=== PATIENT | female | born 1965 | race Caucasian/White ===

== ENCOUNTER 2018-04-05 13:17 | Observation (INO) | payer OTHER ==
--- NOTE | 2018-04-05 14:06 | PDOC ---
History of Present Illness - General Chief Complaint: Chest Pain Stated Complaint: CHEST PAIN - History of Present Illness Initial Comments: The patient is a 53F w/ a hx of a gastric sleeve who presents for evaluation of 2d of burning chest pain that intermittently radiates towards her throat and back. She states that the pain in her back feels more like a pressure. She states that the pain is not exertional, is worse with laying down, and not alleviated by anything she can identify. She has not tried taking anything for her pain. She denies recent illness, fever/chills, JENSEN, vision changes, shortness of breath, abdominal pain, N/V/C/D, or changes in sensation. Patient has an appointment at [facility] tomorrow 04/05/18 14:30 Past History - Past Medical History Allergies/Adverse Reactions: Allergies Allergy/AdvReac Type Severity Reaction Status Date / Time No Known Allergies Allergy Verified 04/05/18 13:25 Home Medications: Ambulatory Orders NK [No Known Home Medication] 04/05/18 COPD: No - Surgical History Abdominal Surgery: Yes (gastric cleeve) - Immunization History Immunization Up to Date: Yes - Suicide/Smoking/Psychosocial Hx Smoking History: Never smoked Hx Alcohol Use: No Drug/Substance Use Hx: No Review of Systems - Review of Systems Able to Perform ROS?: Yes Comments:: GENERAL/CONSTITUTIONAL: No fever or chills. No weakness HEAD, EYES, EARS, NOSE AND THROAT: No change in vision. No ear pain or discharge. No sore throat CARDIOVASCULAR: No shortness of breath RESPIRATORY: Denies cough, hemoptysis GASTROINTESTINAL: No nausea, vomiting, diarrhea or constipation GENITOURINARY: No dysuria, frequency, or change in urination MUSCULOSKELETAL: No joint or muscle swelling or pain SKIN: No rash NEUROLOGIC: No headache, vertigo, loss of consciousness, or change in strength/ sensation ENDOCRINE: No increased thirst. No abnormal weight change HEMATOLOGIC/LYMPHATIC: No anemia, easy bleeding, or history of blood clots ALLERGIC/IMMUNOLOGIC: No hives or skin allergy 04/05/18 14:05 Is the patient limited Syriac proficient: No *Physical Exam - Vital Signs Last Vital Signs Temp Pulse Resp BP Pulse Ox 97.3 F L 71 18 151/97 99 04/05/18 13:26 04/05/18 13:26 04/05/18 13:26 04/05/18 13:26 04/05/18 13:26 - Physical Exam Comments: GENERAL: Awake, alert, and fully oriented, in no acute distress HEAD: No signs of trauma, normocephalic, atraumatic EYES: PERRLA, EOMI, sclera anicteric, conjunctiva clear ENT: Hearing grossly normal, nares patent, oropharynx clear without exudates. Moist mucosa LUNGS: No distress, speaks full sentences, clear to auscultation bilaterally HEART: Regular rate and rhythm, normal S1 and S2, no murmurs appreciated, peripheral pulses normal and equal bilaterally ABDOMEN: Soft, nontender, normoactive bowel sounds. No guarding, no rebound. No masses EXTREMITIES : Normal inspection, Normal range of motion, no edema. No clubbing or cyanosis NEUROLOGICAL: Cranial nerves II through XII grossly intact. Normal speech, normal gait, no focal sensorimotor deficits SKIN: Warm, Dry, normal turgor, no rashes or lesions noted 04/05/18 14:05 Moderate Sedation - Procedure Monitoring Vital Signs: Procedure Monitoring Vital Signs Temperature 97.3 F L 04/05/18 13:26 Pulse Rate 71 04/05/18 13:26 Respiratory Rate 18 04/05/18 13:26 Blood Pressure 151/97 04/05/18 13:26 O2 Sat by Pulse Oximetry (%) 99 04/05/18 13:26 Heart Score/ECG Review - History History: Moderately suspicious - Electrocardiogram EKG: Normal - Age Age: 45-65 - Risk Factors Risk Factors Heart Score: Yes Smoking History, Yes Hx Obesity Based on the list above the patient has:: 1-2 risk factors - Troponin Troponin: </= normal limit - Score Heart Score - Total: 3 ED Treatment Course - LABORATORY CBC & Chemistry Diagram: 04/05/18 14:30 04/05/18 14:30 Medical Decision Making - Medical Decision Making The patient is a 53F w/ a hx of gastric sleeve (2014) who presents for evaluation of burning chest pain that radiates to her throat and back for 2d ED Course CMP, CBC, cardiac enzymes ECG CXR 04/05/18 15:11 Trop I neg No leukocytosis No anemia Lytes wnl No TRUMAN 04/05/18 16:03 Patient reports hx of bronchitis. Reports history of same pain with previous episodes of bronchitis in the past. 04/05/18 16:21 ECG w/ NSR; rate 73; QTc 473 04/05/18 16:42 CTA chest to evaluate for dissection 04/05/18 16:57 L-arm BP 109/58 R-arm BP 118/74 04/05/18 17:42 If, CTA chest neg, plan for Tele obs for ACS r/o 04/05/18 19:03 I have transferred care of the patient to Dr. Leonard and discussed the clinical presentation, work-up and ED course thus far. 04/05/18 19:07 *DC/Admit/Observation/Transfer Diagnosis at time of Disposition: Chest pain Qualifiers: Chest pain type: unspecified Qualified Code(s): R07.9 - Chest pain, unspecified - Discharge Dispostion Condition at time of disposition: Stable - Referrals Referrals: Carlin Baum [Primary Care Provider] - - Patient Instructions Printed Discharge Instructions: DI for Chest Pain - Post Discharge Activity
[2018-04-05] MEDS ORDERED: MAG HYDROX/AL HYDROX/SIMETH 30 ML UNIT-DOSE CUP PO ONE (14:31)
[2018-04-05] MEDS ORDERED: LIDOCAINE VISCOUS 2% ORAL/TOP 20 ML UNIT-DOSE CUP MM ONE (14:31)
[2018-04-05] MEDS ORDERED: LIDOCAINE VISCOUS 2% ORAL/TOP 20 ML UNIT-DOSE CUP ONE (14:35)
[2018-04-05] MEDS ORDERED: MAG HYDROX/AL HYDROX/SIMETH 30 ML UNIT-DOSE CUP ONE (14:36)
[2018-04-05 15:21] LABS: HEMATOCRIT 44.6 % (32.4-45.2); HEMOGLOBIN 14.6 GM/dL (10.7-15.3); MCH 30.8 pg (25.7-33.7); MCHC 32.8 g/dl (32.0-36.0); MEAN PLT VOLUME 11.2 fl (7.5-11.1); PLATELET COUNT 208 K/MM3 (134-434); RBC 4.74 M/mm3 (3.60-5.2); RDW 12.1 % (11.6-15.6); WHITE BLOOD COUNT 5.4 K/mm3 (4.0-10.0)
[2018-04-05 15:47] LABS: ALBUMIN 4.1 g/dl (3.4-5.0); ALK PHOS 96 U/L (45-117); ANION GAP 10 MMOL/L (8-16); BILIRUBIN,TOTAL 0.6 mg/dL (0.2-1); BLOOD UREA NITROGEN 21 mg/dL (7-18); CALCIUM 8.8 mg/dL (8.5-10.1); CHLORIDE 103 mmol/L (98-107); CO2 27 mmol/L (21-32); CREATININE 0.8 mg/dL (0.55-1.3); GLUCOSE,RANDOM 89 mg/dL (74-106); SGOT/AST 31 U/L (15-37); SGPT/ALT 29 U/L (13-61); SODIUM 140 mmol/L (136-145); TOT PROT 7.1 g/dl (6.4-8.2)
--- NOTE | 2018-04-05 17:31 | PDOC ---
Attending Attestation - HPI HPI: 04/05/18 17:33 The patient is a 53-year-old female with a past medical history significant for gastric sleeve presents to the emergency department intermittent chest pain for the 2 days. The patient reports the pain travels up to the throat and back, that s aggravated with laying down. Allergies: NKA PCP: Carlin Hassan - Medical Decision Making 04/05/18 17:33 Documentation prepared by Hanh Cuevas, acting as medical receptionist medical assistant for Andrzej Barraza MD. <Hanh Cuevas - Last Filed: 04/05/18 17:33> - Resident Resident Name: Frankie Cage - ED Attending Attestation I have performed the following: I have examined & evaluated the patient, The case was reviewed & discussed with the resident, I agree w/resident's findings & plan, Exceptions are as noted - Physicial Exam PE: 04/05/18 17:54 Patient is awake and alert, afebrile, in no distress Normocephalic, atraumatic PERRLA, EOMI Neck is supple, without significant anterior cervical lymphadenopathy Oropharynx is clear + Dysphonia CTA RRR No lower extremity edema - Medical Decision Making 04/05/18 17:54 53-year-old female with no previous medical history presents with atraumatic positional chest discomfort and dysphonia. Chest x-ray revealed no evidence of infiltrate or effusion or cardiomegaly. EKG shows no evidence of acute ischemia. First set of cardiac enzymes within normal limit. Will rule out ascending thoracic aneurysm. Will place on telemetry abscess for serial cardiac enzymes. <Andrzej Barraza - Last Filed: 04/05/18 17:55> Heart Score/ECG Review - History History: Moderately suspicious - Electrocardiogram EKG: Normal - Age Age: 45-65 - Risk Factors Risk Factors Heart Score: Yes Smoking History Based on the list above the patient has:: 1-2 risk factors - Troponin Troponin: </= normal limit - Score Heart Score - Total: 3 <Andrzej Barraza - Last Filed: 04/05/18 17:55>
--- NOTE | 2018-04-05 19:00 | EKG ---
Test Reason : Blood Pressure : / mmHG Vent. Rate : 073 BPM Atrial Rate : 073 BPM P-R Int : 176 ms QRS Dur : 086 ms QT Int : 430 ms P-R-T Axes : 070 030 039 degrees QTc Int : 473 ms NORMAL SINUS RHYTHM NORMAL ECG NO PREVIOUS ECGS AVAILABLE Confirmed by POP COVARRUBIAS, ELOY ([id number]) on 04/05/2018 6:59:34 PM Referred By: Confirmed By:ELOY LORD MD
--- NOTE | 2018-04-05 19:40 | PDOC ---
*Physical Exam - Vital Signs Last Vital Signs Temp Pulse Resp BP Pulse Ox 97.3 F L 71 18 151/97 99 04/05/18 13:26 04/05/18 13:26 04/05/18 13:26 04/05/18 13:26 04/05/18 13:26 ED Treatment Course - LABORATORY CBC & Chemistry Diagram: 04/05/18 14:30 04/05/18 14:30 - ADDITIONAL ORDERS Additional order review: Laboratory Results 04/05/18 14:30 Sodium 140 Potassium 4.0 Chloride 103 Carbon Dioxide 27 Anion Gap 10 BUN 21 H Creatinine 0.8 Creat Clearance w eGFR > 60 Random Glucose 89 Calcium 8.8 Total Bilirubin 0.6 AST 31 ALT 29 Alkaline Phosphatase 96 Creatine Kinase 206 H Creatine Kinase Index 1.4 CK-MB (CK-2) 2.9 Troponin I < 0.02 Total Protein 7.1 Albumin 4.1 04/05/18 14:30 RBC 4.74 MCV 94.0 MCHC 32.8 RDW 12.1 MPV 11.2 H - Medications Given in the ED: ED Medications Discontinued Medications Generic Name Dose Route Start Last Admin Trade Name Ryan PRN Reason Stop Dose Admin Al Hydroxide/Mg Hydroxide 30 ml 04/05/18 14:31 04/05/18 14:39 Mylanta Oral Suspension - PO 04/05/18 14:32 30 ml ONCE ONE Administration Lidocaine HCl 20 ml 04/05/18 14:31 04/05/18 14:39 Xylocaine 2% Viscous Oral - MM 04/05/18 14:32 20 ml ONCE ONE Administration Medical Decision Making - Medical Decision Making 04/05/18 19:[address] Cage *DC/Admit/Observation/Transfer Diagnosis at time of Disposition: Chest pain Qualifiers: Chest pain type: unspecified Qualified Code(s): R07.9 - Chest pain, unspecified - Discharge Dispostion Condition at time of disposition: Stable Decision to Admit order: Yes - Referrals Referrals: Carlin Baum [Primary Care Provider] - - Patient Instructions Printed Discharge Instructions: DI for Chest Pain - Post Discharge Activity
[2018-04-05] MEDS ORDERED: ASPIRIN 325 MG TABLET ONE (19:59)
--- NOTE | 2018-04-05 20:52 | PN ---
Teaching Attending Note Name of Resident: Reji Doss ATTENDING PHYSICIAN STATEMENT I saw and evaluated the patient. I reviewed the resident's note and discussed the case with the resident. I agree with the resident's findings and plan as documented. SUBJECTIVE: Patient is a 53 year old woman with history of a gastric sleeve who presents for evaluation of 2d of burning chest pain that intermittently radiates towards her throat and back. She states that the pain in her back feels more like a pressure. She states that the pain is not exertional, is worse with laying down , and not alleviated by anything she can identify. She has not tried taking anything for her pain. She denies recent illness, fever/chills, JENSEN, vision changes, shortness of breath, abdominal pain, N/V/C/D, or changes in sensation OBJECTIVE: Alert Vital Signs Period Temp Pulse Resp BP Sys/[place] Pulse Ox Last 24 Hr 97.3 F 71 18 151/97 99 HEENT: No Jaundice, eye redness or discharge, PERRLA, EOMI. Normocephalic, atraumatic. External ears are normal and hearing is grossly intact. No nasal discharge. Neck: Supple, nontender. No palpable adenopathy or thyromegaly. No JVD Chest: Good effort. Clear to auscultation and percussion. Heart: Regular. No S3, rub or murmur Abdomen: Not distended, soft, nontender and no HSM. No rebound or guarding. Normoactive bowel sounds. Ext: Peripheral pulses intact. No leg edema. Skin: Warm and dry. No petechiae, rash or ecchymosis. Neuro: Alert. Oriented x3. CN 2-12 grossly intact. Sensation grossly intact in all four extremities and DTR are symmetric. Current Medications Generic Name Dose Route Start Last Admin Trade Name Freq PRN Reason Stop Dose Admin Aspirin 325 mg 04/06/18 19:09 Asa - PO 04/06/18 19:10 ONCE ONE Home Medications Medication Instructions Recorded NK [No Known Home Medication] 04/05/18 Abnormal Lab Results 04/05/18 04/05/18 14:30 14:30 MPV 11.2 H BUN 21 H Creatine Kinase 206 H ASSESSMENT AND PLAN: 1. Chest pain - No acute pathology on CXR and no significant ST-T wave changes on EKG. Initial troponin is negative. Will admit to telemetry to rule ACS, get ECHO, fasting lipids and consult cardiology. LLL nodule found on CT - needs repeat CT in 3 months. 2. Obesity - Will provide patient all the necessary assistance, counseling and positive reinforcement to facilitate weight loss. Consult pharmacoepidemiologist. 3. DVT prophylaxis - Lovenox 40 mg SQ q 24 hours. 4. Advance directives - Full code
--- NOTE | 2018-04-05 22:45 | HP ---
CHIEF COMPLAINT: chest pain PCP: Dr. Denton HISTORY OF PRESENT ILLNESS: Pt. is a 53 y.o. F with PMHx. of GERD, Gastric Sleeve(2012) and hiatal hernia presents to the ED with atypical chest pain for 2 days. Pt. states that the pain started 2 days ago and describes the pain as a burning sensation that radiates retrosternally to the back. Pt. states that lying down with pillows for elevation makes the pain better as does movement. Pt. rates the pain at 8/10 on ED admission, after receiving Mylanta, Pt. states the pain has decreased to 6/10. Pt. states that she was evlauated for heart disease before undergoing her previous surgeries and has no history of heart disease. Pt. endorses eating 1-2 hours before lying down to go to bed. Pt. endorses smoking. Pt. endorses recently changing her diet to a ketogenic diet and has noticed tat her acid reflux has gotten worse, with return of belching that had disappeared when she last changed her diet and removed milk which greatly improved her reflux symptoms. Pt. endorses hoarseness of her voice that has increased during this time. Pt. states that she follows with her Primary care Physician regulary and recently had for esophagus scoped. She states that as long as it is not a "heart problem" that she would like to leave because everythign that will be done for her GERD she already has had done. 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" Family History: Father of DC([id number]), Mother has Hypotension, Brother has arthritis Allergies No Known Allergies Allergy (Verified 04/05/18 13:25) HOME MEDICATIONS: Home Medications Medication Instructions Recorded NK [No Known Home Medication] 04/05/18 REVIEW OF SYSTEMS CONSTITUTIONAL: Absent: fever, chills, diaphoresis, generalized weakness, malaise, loss of appetite, weight change HEENT: Present: hoarseness Absent: rhinorrhea, nasal congestion, throat pain, throat swelling, difficulty swallowing, mouth swelling, ear pain, eye pain, visual changes CARDIOVASCULAR: chest pain Absent: syncope, palpitations, irregular heart rate, lightheadedness, peripheral edema RESPIRATORY: Absent: cough, shortness of breath, dyspnea with exertion, orthopnea, wheezing, stridor, hemoptysis GASTROINTESTINAL: chronic constipation Absent: abdominal pain, abdominal distension, nausea, vomiting, diarrhea, , melena, hematochezia GENITOURINARY: Absent: dysuria, frequency, urgency, hesitancy, hematuria, flank pain, genital pain MUSCULOSKELETAL: Absent: myalgia, arthralgia, joint swelling, back pain, neck pain SKIN: Absent: rash, itching, pallor HEMATOLOGIC/IMMUNOLOGIC: Absent: easy bleeding, easy bruising, lymphadenopathy, frequent infections ENDOCRINE: Absent: unexplained weight gain, unexplained weight loss, heat intolerance, cold intolerance NEUROLOGIC: dizziness Absent: headache, focal weakness or paresthesias, unsteady gait, seizure, mental status changes, bladder or bowel incontinence PSYCHIATRIC: Absent: anxiety, depression, suicidal or homicidal ideation, hallucinations. PHYSICAL EXAMINATION Vital Signs - 24 hr 04/05/18 04/05/18 13:26 19:13 Temperature 97.3 F L Pulse Rate 71 Respiratory 18 Rate Blood Pressure 151/97 O2 Sat by Pulse 99 100 Oximetry (%) GENERAL: Awake, alert, and fully oriented, in no acute distress. HEAD: Normal with no signs of trauma. EYES: Pupils equal, round and reactive to light, extraocular movements intact, sclera anicteric, conjunctiva clear. No lid lag. EARS, NOSE, THROAT: Ears normal, nares patent, oropharynx clear without exudates. Moist mucous membranes. NECK: Normal range of motion, supple without lymphadenopathy, JVD, or masses. LUNGS: Breath sounds equal, clear to auscultation bilaterally. No wheezes, and no crackles. No accessory muscle use. HEART: Regular rate and rhythm, normal S1 and S2 without murmur, rub or gallop. ABDOMEN: Soft, nontender, not distended, normoactive bowel sounds, no guarding, no rebound, no masses. No hepatomegaly or splenomegaly. MUSCULOSKELETAL: Normal range of motion at all joints. No bony deformities or tenderness. No CVA tenderness. UPPER EXTREMITIES: 2+ pulses, warm, well-perfused. No cyanosis. No clubbing. No peripheral edema. LOWER EXTREMITIES: 2+ pulses, warm, well-perfused. No calf tenderness. No peripheral edema. NEUROLOGICAL: Cranial nerves II-XII intact. Normal speech. Normal gait. PSYCHIATRIC: Cooperative. Good eye contact. Appropriate mood and affect. SKIN: Warm, dry, normal turgor, no rashes or lesions noted, normal capillary refill. Laboratory Results - last 24 hr 04/05/18 04/05/18 14:30 14:30 WBC 5.4 RBC 4.74 Hgb 14.6 Hct 44.6 MCV 94.0 MCH 30.8 MCHC 32.8 RDW 12.1 Plt Count 208 MPV 11.2 H Sodium 140 Potassium 4.0 Chloride 103 Carbon Dioxide 27 Anion Gap 10 BUN 21 H Creatinine 0.8 Creat Clearance w eGFR > 60 Random Glucose 89 Calcium 8.8 Total Bilirubin 0.6 AST 31 ALT 29 Alkaline Phosphatase 96 Creatine Kinase 206 H Creatine Kinase Index 1.4 CK-MB (CK-2) 2.9 Troponin I < 0.02 Total Protein 7.1 Albumin 4.1 ASSESSMENT/PLAN: Pt. is a 53 y.o. F w/ PMHx. of GERD, Gastric Sleeve(2012), Hiatal Hernia and carpal tunnel presents with burning chest pain that radiates to the back. #R/O ACS -EKG: NSR; QTc: 473 -Tropnin Negative -f/u Rpt. Tropnin and EKG -f/u Echo to rule out structural abnormalities -f/u Lipid panel #GERD -s/p Mylanta in ED to good effect -Pt. endorses hoarsness of voice and history of GERD -Pt, states that she treats GERD with diet control and that her PCP advised against using fci PPI -Pt. had recent EGD, will obtain records in AM from [address] [place] [address] from PCP (Dr. Denton). -f/u ENT consult (Dr. Knapp) -consider GI consult #DVT PPx -Early ambulation #F/E/N -No IVF, enourage PO intake -monitor electrolytes replete as needed -Regular Diet Visit type - Emergency Visit Emergency Visit: Yes ED Registration Date: 04/05/18 Care time: The patient presented to the Emergency Department on the above date and was hospitalized for further evaluation of their emergent condition. - New Patient This patient is new to me today: Yes Date on this admission: 04/05/18 - Critical Care Critical Care patient: No
[2018-04-06 05:38] VITALS: BMI 38.4
[2018-04-06 08:23] LABS: HEMATOCRIT 40.1 % (32.4-45.2); HEMOGLOBIN 13.1 GM/dL (10.7-15.3); MCH 30.6 pg (25.7-33.7); MCHC 32.7 g/dl (32.0-36.0); MEAN CELL VOLUME 93.5 fl (80-96); MEAN PLT VOLUME 10.7 fl (7.5-11.1); PLATELET COUNT 173 K/MM3 (134-434); RBC 4.29 M/mm3 (3.60-5.2); RDW 12.1 % (11.6-15.6); WHITE BLOOD COUNT 3.8 K/mm3 (4.0-10.0)
[2018-04-06 09:17] LABS: ANION GAP 9 MMOL/L (8-16); BLOOD UREA NITROGEN 14 mg/dL (7-18); CALCIUM 8.2 mg/dL (8.5-10.1); CHLORIDE 104 mmol/L (98-107); CO2 29 mmol/L (21-32); CREATININE 0.7 mg/dL (0.55-1.3); GLUCOSE,RANDOM 82 mg/dL (74-106); MAGNESIUM 2.3 mg/dL (1.8-2.4); PHOSPHOROUS 3.5 mg/dL (2.5-4.9); POTASSIUM 3.8 mmol/L (3.5-5.1); SODIUM 143 mmol/L (136-145)
[2018-04-06] MEDS ORDERED: PANTOPRAZOLE SODIUM 40 MG VIAL IVPUSH SCH (10:00)
[2018-04-06 10:59] VITALS: TEMP 97.7
--- NOTE | 2018-04-06 13:11 | DS ---
Physical Exam: SUBJECTIVE: Patient seen and examined Patient is comfortable with no acute distress. No further reflux or chest pain. OBJECTIVE: Vital Signs Temperature 97.7 F 04/06/18 09:00 Pulse Rate 82 04/06/18 09:00 Respiratory Rate 18 04/06/18 09:00 Blood Pressure 107/58 L 04/06/18 09:00 O2 Sat by Pulse Oximetry (%) 99 04/06/18 02:45 Initial Vital Signs Temp Pulse Resp BP Pulse Ox 97.3 F L 71 18 151/97 99 04/05/18 13:26 04/05/18 13:26 04/05/18 13:26 04/05/18 13:26 04/05/18 13:26 PHYSICAL EXAM GENERAL: The patient is awake, alert, and fully oriented, in no acute distress. HEAD: Normal with no signs of trauma. EYES: PERRL, extraocular movements intact, sclera anicteric, conjunctiva clear. ENT: Ears normal, oropharynx clear without exudates, moist mucous membranes. normal speech, no hoarseness noted. NECK: Trachea midline, full range of motion, supple. LUNGS: Breath sounds equal, clear to auscultation bilaterally, no wheezes, no crackles, no accessory muscle use. HEART: Regular rate and rhythm, S1, S2 without murmur, rub or gallop. ABDOMEN: Soft, nontender, nondistended, normoactive bowel sounds, no guarding, no rebound, no hepatosplenomegaly, no masses. EXTREMITIES: 2+ pulses, warm, well-perfused, no edema. NEUROLOGICAL: Cranial nerves II through XII grossly intact. Normal speech. PSYCH: Normal mood, normal affect. SKIN: Warm, dry, normal turgor, no rashes or lesions noted. LABS Laboratory Results - last 24 hr 04/05/18 04/05/18 04/06/18 14:30 14:30 06:50 WBC 5.4 3.8 L RBC 4.74 4.29 Hgb 14.6 13.1 Hct 44.6 40.1 MCV 94.0 93.5 MCH 30.8 30.6 MCHC 32.8 32.7 RDW 12.1 12.1 Plt Count 208 173 MPV 11.2 H 10.7 Sodium 140 Potassium 4.0 Chloride 103 Carbon Dioxide 27 Anion Gap 10 BUN 21 H Creatinine 0.8 Creat Clearance w eGFR > 60 Random Glucose 89 Calcium 8.8 Phosphorus Magnesium Total Bilirubin 0.6 AST 31 ALT 29 Alkaline Phosphatase 96 Creatine Kinase 206 H Creatine Kinase Index 1.4 CK-MB (CK-2) 2.9 Troponin I < 0.02 Total Protein 7.1 Albumin 4.1 04/06/18 06:50 WBC RBC Hgb Hct MCV MCH MCHC RDW Plt Count MPV Sodium 143 Potassium 3.8 Chloride 104 Carbon Dioxide 29 Anion Gap 9 BUN 14 Creatinine 0.7 Creat Clearance w eGFR > 60 Random Glucose 82 Calcium 8.2 L Phosphorus 3.5 Magnesium 2.3 Total Bilirubin AST ALT Alkaline Phosphatase Creatine Kinase Creatine Kinase Index CK-MB (CK-2) Troponin I < 0.02 Total Protein Albumin CTA: Impression: No CT evidence of aortic dissection or other acute pathology. A 1.7 cm focus of mild localized interstitial thickening is seen within the left lower lobe medially - ? representing postinflammatory change versus a nonspecific groundglass interstitial nodule. Comparison with previous CT studies would be quite helpful if available from a different facility. If prior studies are not available correlation with 3 month follow-up CT is essential to evaluate stability. HOSPITAL COURSE: Date of Admission:04/05/18 Date of Discharge: 04/06/18 Patient is a 53 yo female with PMHx. of GERD, Gastric Sleeve(2012), Hiatal Hernia and carpal tunnel presents with burning chest pain that radiates to the back. CTA is done which showed 1.7 cm focus of mild localized interstitial thickening is seen within the left lower lobe medially - questionable representing postinflammatory change versus a nonspecific groundglass interstitial nodule. Comparison with previous CT studies would be quite helpful if available from a different facility. If prior studies are not available correlation with 3 month follow-up CT is essential to evaluate stability. Troponins were done which were negative, EKG reviewed not impressive. EKG: NSR; QTc: 473 #Hx of GERD patient will continue her diet which was helping her Gerd. follow with your office machine technician and GI discharge patient home 35minutes Minutes to complete discharge: 35 Discharge Summary Reason For Visit: CHEST PAIN Current Active Problems Chest pain (Acute) Condition: Stable - Instructions Referrals: Carlin Baum [Primary Care Provider] - - Home Medications Comprehensive Discharge Medication List: Ambulatory Orders NK [No Known Home Medication] 04/05/18 This patient is new to me today: Yes Date on this admission: 04/06/18 Emergency Visit: Yes ED Registration Date: 04/05/18 Care time: The patient presented to the Emergency Department on the above date and was hospitalized for further evaluation of their emergent condition. Critical Care patient: No - Discharge Referral Referred to [facility] No
[2018-04-06 14:15] VITALS: BP 99/70; PULSE 71
--- NOTE | 2018-04-06 14:20 | CON.ENT ---
Consult Consult Specialty:: throat pain Reason for Consultation:: throat burning - History of Present Illness Chief Complaint: Throat pain History of Present Illness: with h/o gastric sleeve and GERD with chest pain and burning improved with antacid. She has had EGD and laryngoscopy in past few months confirming GERD. - History Source History Provided By: Patient, Medical Record - Alcohol/Substance Use Hx Alcohol Use: No - Smoking History Smoking history: Never smoked Home Medications - Allergies Allergies/Adverse Reactions: Allergies Allergy/AdvReac Type Severity Reaction Status Date / Time No Known Allergies Allergy Verified 04/05/18 13:25 - Home Medications Home Medications: Ambulatory Orders NK [No Known Home Medication] 04/05/18 Physical Exam-ENT Vital Signs: Vital Signs Temperature 97.7 F 04/06/18 14:15 Pulse Rate 71 04/06/18 14:15 Respiratory Rate 18 04/06/18 09:00 Blood Pressure 99/70 04/06/18 14:15 O2 Sat by Pulse Oximetry (%) 98 04/06/18 07:23 Constitutional: Yes: Well Nourished, No Distress Head: Yes: WNL Face: Yes: WNL, Symmetrical Eyes: Yes: WNL, Conjunctiva Clear Nose: Yes: WNL Nasal Passage: Yes: WNL Oral/Pharynx: Yes: WNL Outer Ear: Yes: WNL Ear Canal: Yes: WNL Neck: Yes: WNL Problem List - Problems (1) Throat pain Assessment/Plan: No sign of infection. Pain is from LPR/GERD. Continue on GERD diet and acid reducing meds, f/u in office in couple weeks. Code(s): R07.0 - PAIN IN THROAT
[2018-04-06] MEDS ORDERED: ASPIRIN 325 MG TABLET PO ONE (19:09)
--- NOTE | 2018-04-06 21:17 | EKG ---
Test Reason : Blood Pressure : / mmHG Vent. Rate : 068 BPM Atrial Rate : 068 BPM P-R Int : 172 ms QRS Dur : 082 ms QT Int : 424 ms P-R-T Axes : 066 027 028 degrees QTc Int : 450 ms NORMAL SINUS RHYTHM NORMAL ECG WHEN COMPARED WITH ECG OF 05-APR-2018 13:24, NO SIGNIFICANT CHANGE WAS FOUND Confirmed by ELOY LORD MD ([id number]) on 04/06/2018 9:17:02 PM Referred By: Leigh CARBAJAL Confirmed By:ELOY LORD MD
== END 2018-04-06 15:01 | disposition home or self-care (01) ==
LOC: JER 13:17 → JERBED 20:57 → J4W 04-06 02:32
PROVIDERS: ADMIT Internal Medicine; ATTEND Internal Medicine
PROC: 3E033GC Introduction of Other Therapeutic Substance into Peripheral Vein, Percutaneous Approach (ICD-10-PCS; principal; 2018-04-05)
DX: R07.9 Chest pain, unspecified (principal); K21.9 Gastro-esophageal reflux disease without esophagitis; K59.09 Other constipation; F17.210 Nicotine dependence, cigarettes, uncomplicated; E66.9 Obesity, unspecified; Z68.38 Body mass index [BMI] 38.0-38.9, adult; Z98.84 Bariatric surgery status; Z96.652 Presence of left artificial knee joint
CPT/HCPCS: 36415; 71046-TC-FY; 71275-TC; 80048; 80053; 82550; 82553; 83735; 84100; 84484; 85027; 93005; 93010; 96374; 99285-25; G0378